=== PATIENT | male | born 1935 | race African-American/Black ===

== ENCOUNTER 2017-01-14 21:53 | Inpatient (IN) | payer MEDICARE ==
--- NOTE | ~2017-01-14 | OP ---
Record Of Operation [facility] [address] [place]. [address] NAME: MITCHELL LAW : 34 STATUS : ADM IN PAT#: [id number] AGE: 82 ADM/REG DATE : 01/15/17 MR#: [id number] REPORT SERV DATE: 01/16/17 DICTATED BY: KARIME OROURKE DATE: 01/16/17 REPORT STATUS : Draft TRANSCRIBED BY: MODL DATE: 01/16/17 DATE OF PROCEDURE: 01/16/2017 PREOPERATIVE DIAGNOSES: 1. LeFort 1 facial fracture. 2. Comminuted nasal fracture. POSTOPERATIVE DIAGNOSES: 1. LeFort 1 facial fracture. 2. Comminuted nasal fracture. PROCEDURES PERFORMED: 1. ORIF of LeFort 1 fracture. 2. Close reduction of comminuted nasal fracture. ANESTHESIA: GETA with oral CY. SURGEON: Karime Orourke D.D.S. INDICATIONS: This is an 82-year-old male, who fell two days ago, and his anterior face and nose at a nursing facility. The patient was transferred to the [facility] for definitive treatment of his injuries. PROCEDURE PERFORMED: Informed consent was given, the patient was taken to the operating room at [facility] where he underwent a general anesthetic via oral tracheal intubation. The patient was prepped and draped in a normal sterile fashion for procedure of this type. Approximately 20 mL of 0.5% Marcaine with 1:200,000 epinephrine was injected into the anterior maxilla. At this time a cautery with a [place] tip Bovie was used to make an incision through the mucosa exposing his anterior nasal wall and his buttress of his maxilla on both sides. It is noted that he had comminution fractures and his entire maxilla moved with pressure to the anterior bony portion. At this time, the S plating system was opened and a four hole straight plate was used on the right side on the piriform rim area, and also a box lattice work type plate was used on the right, as well as the left, secured with multiple screws to fixate his maxilla. Copious irrigation was used in the flap. The mucosa was closed with 3-0 chromic gut suture in a running, interlocking fashion. Attention then was directed to the nasal bone, a speculum was used to visualize the septum and rule out any significant hematoma. The back end of a Ecal-Beau blade was used to carefully reduced the fracture of his comminuted nasal bone. The splint kit was opened. Mastisol was used and a malleable splint was placed over his nose and secured with paper tape. At the end of the surgery, the patient was thoroughly suctioned out orally, and an orogastric tube was placed and removed to suck out any stomach contents. Estimated blood loss was 20 mL. The patient tolerated the procedure well. He was extubated and taken recovery room stable condition. JS/JAMIL Record Of Operation [place] [id number] [facility] [place]. [address] NAME: MITCHELL LAW : 34 STATUS : ADM IN [facility]#: [id number] AGE: 82 ADM/REG DATE : 01/15/17 MR#: [id number] REPORT SERV DATE: 01/16/17 DICTATED BY: KARIME OROURKE DATE: 01/16/17 REPORT STATUS : Draft TRANSCRIBED BY: JAMIL DATE: 01/16/17 Karime Orourke D.D.S. / [id number] CC: Loraine Foley M.D.
--- NOTE | ~2017-01-14 | DS ---
Discharge Summary [facility] [address] [place]. [address] NAME: MITCHELL LAW : 34 STATUS : DIS IN PAT#: [id number] AGE: 82 ADM/REG DATE : 01/15/17 MR#: [id number] REPORT SERV DATE: 01/27/17 DICTATED BY: LISA NUR DATE: 01/26/17 REPORT STATUS : Draft TRANSCRIBED BY: JAMIL DATE: 01/26/17 Data Collection from hospitalization DISCHARGE DIAGNOSES: 1. LeFort 1 facial fracture, status post open reduction and internal fixation. 2. Comminuted nasal fracture, status post closed reduction of comminuted nasal fracture. 3. Swelling of lip/drooling - probable combination of old cerebrovascular accident and swelling of the face. 4. Hypertension. 5. Dementia. 6. Prediabetes. 7. History of prostate cancer. 8. Cerebrovascular disease. 9. Chronic obstructive pulmonary disease. 10.Stage III chronic kidney disease. 11.Iron deficiency. 12.Folic acid deficiency. 13.Large hiatal hernia. 14.Gastroesophageal reflux disease. 15.Hyperlipidemia. 16.Glaucoma. 17.Osteoporosis. 18.Allergic rhinitis. 19.Former smoker. CONSULTATIONS: Osman Ribera D.D.S. PROCEDURES PERFORMED: 1. Open reduction and internal fixation of the LeFort 1 fracture, closed reduction of comminuted nasal fracture on 01/16/2017. 2. CT scan of the brain without contrast and CT scan of the face without contrast on 01/14/2017. MEDICATIONS: Tylenol 1000 mg twice a day as instructed, Ventolin two puffs via inhaler four times a day as needed, Augmentin 875 mg twice a day, aspirin 81 mg daily, brimonidine one drop at bedtime, Tums 500 mg twice a day, Zyrtec 10 mg daily, Colace 100 mg twice a day, ferrous sulfate 325 mg daily, Proscar 5 mg at bedtime, Advair Diskus one puff via inhaler twice a day, folic acid 1 mg daily, Cozaar 25 mg daily, Namenda 5 mg twice a day, Percocet 5/325 one tablet with every eight hours as needed, Protonix 40 mg twice a day, MiraLAX powder 17 g daily, Zocor 20 mg at bedtime, Spiriva one capsule via inhaler daily, and Travatan one drop daily as instructed. CONDITION AT DISCHARGE: Stable. DISPOSITION: The patient was discharged home on a soft diet with activities as instructed. He would follow up with Dr. Osman Ribera on 01/19/2017. HOSPITAL COURSE: This is an 82-year-old man who was at a local assisted living facility when Discharge Summary [address] [place]. [address] NAME: MITCHELL LAW : 34 STATUS : DIS IN PAT#: [id number] AGE: 82 ADM/REG DATE : 01/15/17 MR#: [id number] REPORT SERV DATE: 01/27/17 DICTATED BY: LISA NUR DATE: 01/26/17 REPORT STATUS : Draft TRANSCRIBED BY: JAMIL DATE: 01/26/17 he had a fall while unpacking his clothes. He said he turned around to pick something up and his foot got stuck in the rail and he went straight down face forward and was unable to hold onto something to break his fall. Immediately, his nose started bleeding and he experienced severe pain in his cheek. He was admitted to the hospital at this time for further evaluation and treatment. Upon admission, his white count was 11.3 with an increase of neutrophils. Creatinine level was 1.01. CT scan of the face and brain showed no intracranial hemorrhage. He had moderate advanced diffuse cerebral evolutional changes and advanced deep white matter chronic changes with microvascular ischemic change. His chronic focal encephalomalacia, inferior left cerebellar hemisphere. He was acutely and mildly depressed. He has comminuted fracture of the anterior nasal bone and frontal process, left maxilla, anterior and posterior wall of the maxillary sinuses with hematoma with air hemorrhage levels within the maxillary sinuses. It was felt that he would need to undergo surgical intervention. We did not see any major contraindications for surgery. He has sibm-tn-khogqnkg dementia. IV fluids were being provided. Rocephin was continued. He had a low-grade temperature. There was no indication of infection. Proscar was continued for his history of prostate cancer. He was going to receive his bronchodilators by nebulization and his steroids. He would be started on incentive spirometry and we would use some oxygen if his oxygen level drop less than 92%. Losartan would be continued. Hydralazine would be given as needed. Antiglaucoma drops would be continued as well as his Namenda. He does have mild anemia with a history of iron deficiency anemia. We would continue his iron and folic acid. Stat EKG showed sinus rhythm at 65 beats per minute with nonspecific T-wave abnormalities. No acute ST depressions or elevations were present. He was seen by Dr. Osman Ribera. The patient was found to have comminuted fractures to his nasal bone along with complex fracture pattern to the central face that include fractures of the nasal bone, frontal process, bilateral maxilla. He reviewed the CT scan with the radiologist. It was felt that the patient could be diagnosed with a nondisplaced LeFort 1 fracture along with nasal fracture. He did not show any fracture of the cervical spine. He did, however, have some hematoma in the maxillary sinuses consistent with this type of fracture pattern. Treatment options were discussed and it was elected to proceed with surgical intervention. The following day, he was taken to the operating room where he underwent the above-mentioned procedure by Dr. Osman Ribera. He tolerated this well, and there were no complications. His surgery went well. He had no significant pain. He was tolerating liquids. IV fluids were stopped. He did have an abnormal urinalysis and followup urine culture was obtained. Rocephin was continued. On postop day #1, he was awake and alert. He had no airway problems. He had no acute bleeding. He did have some facial swelling consistent with surgery. Nasal splint was intact. Augmentin was going to be given postoperatively. Discharge planning was performed. He said he was sore all over. His T-max was 100. SCDs were in place. Blood cultures were obtained as well as a chest x-ray. On 01/18/2017, his blood cultures were negative. Urine culture was unremarkable. He had left numbness. He was able to open his mouth to eat. He did complain of drooling. Discharge instructions were given. Due to his improved and stable condition, he was discharged home with the above-stated instructions. Information collected by: Berta Stewart Discharge Summary [address] [place]. [address] NAME: MITCHELL LAW : 34 STATUS : DIS IN [facility]#: [id number] AGE: 82 ADM/REG DATE : 01/15/17 MR#: [id number] REPORT SERV DATE: 01/27/17 DICTATED BY: LISA NUR DATE: 01/26/17 REPORT STATUS : Draft TRANSCRIBED BY: JAMIL DATE: 01/26/17 I submit the above information as my discharge summary. TG/JAMIL Lisa Nur M.D. / [id number] CC: Porfirio Rivas D.D.SArlene
--- NOTE | ~2017-01-14 | CN ---
Consultation Report [facility] [address] [facility] [place]. [address] NAME: MITCHELL LAW : 34 STATUS : ADM Sher PAT#: [id number] AGE: 82 ADM/REG DATE : 01/14/17 MR#: [id number] REPORT SERV DATE: 01/15/17 DICTATED BY: KARIME OROURKE DATE: 01/15/17 REPORT STATUS : Draft TRANSCRIBED BY: MODJuliana DATE: 01/15/17 DATE OF CONSULTATION: CHIEF COMPLAINT: "I fell and hit my face." HISTORY OF PRESENT ILLNESS: This is an 82-year-old male status post fall yesterday with a poor history. The patient does have a history of dementia. PAST MEDICAL HISTORY: Significant for dementia, Valdes's esophagitis, hiatal hernia, osteoporosis. ALLERGIES: HE HAS NO KNOWN DRUG ALLERGIES. PHYSICAL EXAMINATION: He is 5 feet 10 inches, weight is 146 pounds. VITAL SIGNS: Upon admission to [facility], blood pressure 196/92, temperature 99, pulse 82, oxygen saturation 98%. HEAD, EYES, EARS, NOSE, THROAT: The patient is normocephalic. He has moderate mid facial edema. His pupils are equal, round, reactive to light. His extraocular muscles are intact. He has no significant bleeding from his nares, however, he has some displacement of the nasal bone to the patient's left side with moderate edema to the mid face. The patient is very sensitive intraorally in his maxilla. The patient does not have a malocclusion. He does wear complete dentures and is edentulous in both arches. The patient does not have any significant ecchymosis in his sclerae. The patient does complain of eibcyxla-cy-stzvmm facial pain in his mid face. X-RAY: The radiologist performed a CT scan of the head and face that revealed comminuted fractures to his nasal bone along with complex fracture pattern to the central face that include fractures of the nasal bone, frontal process, bilateral maxilla. After reviewing the CT scan with radiologist, the patient could be diagnosed with a nondisplaced LeFort 1 fracture along with a nasal fracture. The patient does not show any fracture of his cervical spine. He does, however, have some hematoma in the maxillary sinuses consistent with this type of fracture pattern. PLAN OF CARE: To continue appropriate home meds, to deliver intravenous fluids along with antibiotics. The patient will undergo open reduction and internal fixation of facial fractures tomorrow morning. The patient would need to continue on a soft mechanical/full liquid diet for several weeks postoperatively. I appreciate the hospitalist's perioperative management of this patient. ALLA/JAMIL Consultation Report [address] [place]. [address] NAME: MITCHELL LAW : 34 STATUS : ADM Sher PAT#: [id number] AGE: 82 ADM/REG DATE : 01/14/17 MR#: [id number] REPORT SERV DATE: 01/15/17 DICTATED BY: KARIME OROURKE DATE: 01/15/17 REPORT STATUS : Draft TRANSCRIBED BY: JAMIL DATE: 01/15/17 Karime Orourke D.D.S. / [id number] CC: Loraine Foley M.D.
--- NOTE | ~2017-01-14 | HP ---
History And Physical [place] [address] [place]. [address] NAME: MITCHELL LAW : 34 STATUS : ADM IN [facility]#: [id number] AGE: 82 ADM/REG DATE : 01/15/17 MR#: [id number] REPORT SERV DATE: 01/15/17 DICTATED BY: LISA NUR DATE: 01/15/17 REPORT STATUS : Draft TRANSCRIBED BY: MODJuliana DATE: 01/15/17 DATE OF ADMISSION: 01/14/2017 CHIEF COMPLAINT: Fall with facial pain and nose bleed. HISTORY OF PRESENT ILLNESS: Mr. Lloyd is an 82-year-old male, who was at respite at a local assisted living when he had a fall while unpacking his clothes. He stated he turned around to pick something up, his foot got stuck in the rail and he went straight down face forward and was unable to hold onto something to break his fall. Immediately, his nose started bleeding and he experienced severe pain in his cheek. ALLERGIES: LISINOPRIL CAUSES COUGH. CURRENT MEDICATIONS: Include aspirin 81 mg daily, Proscar 5 mg daily, Namenda 5 mg twice daily, Cozaar 25 mg daily, folic acid 1 mg daily, Zocor 20 mg at bedtime, Colace 100 mg twice daily, Protonix 40 mg b.i.d., MiraLAX 17 g daily, Advair 250/50 one puff twice daily, Spiriva once daily, Zyrtec 10 mg daily, brimonidine 0.2 mg in both eyes at bedtime, Xalatan 0.005% in both eyes once daily. 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 SOCIAL HISTORY: He lives with his daughter. He is an ex-smoker, quit greater than 20 years ago, but was a heavy smoker. FAMILY HISTORY: Noncontributory. REVIEW OF SYSTEMS: Even before this incident, he had occasional headaches. No recent chest pain. No shortness of breath at rest or with mild exertion. No recent surgeries. No recent hospitalizations. His daughter is at his bedside. PHYSICAL EXAMINATION: VITAL SIGNS: Temp 99, blood pressure 136/66, pulse 76, respiratory rate 16, O2 saturation 97%. Weight 150 pounds. GENERAL: He is a pleasant, elderly man in no apparent distress. HEENT: He has muddy conjunctivae, no conjunctival injection. He does have nasal swelling with tenderness. He has a healing laceration on the right side of his lower lip. His upper lip is swollen and he has tenderness of both cheeks, but especially at the left cheek. He has dentures in place upper and lower that fit well and are not broken. NECK: Supple. No tenderness. CARDIAC: Regular rate and rhythm with a 2/6 systolic murmur. History And Physical [address] [address] NAME: MITCHELL LAW : 34 STATUS : ADM IN [facility]#: [id number] AGE: 82 ADM/REG DATE : 01/15/17 MR#: [id number] REPORT SERV DATE: 01/15/17 DICTATED BY: LISA NUR DATE: 01/15/17 REPORT STATUS : Draft TRANSCRIBED BY: JAMIL DATE: 01/15/17 LUNGS: Clear. BACK: He has a scar on his left flank. ABDOMEN: Positive bowel sounds. Soft, nondistended, nontender. : No Haile in place. Has on diapers. EXTREMITIES: No edema. NEURO: He is alert, fluent, 4+/5 strength in upper extremities, 5-/5 strength in bilateral lower extremities. He follows directions. No tremor. SKIN: No pressure ulcers. No rashes. He does have multiple small seborrheic keratosis on his back. LABORATORY EVALUATION: White count was 11.3 with an increase of neutrophils and hemoglobin of 11.4, hematocrit of 34.2, platelets 240. PT 13.6, INR 1.1. Chemistries show sodium 143, potassium 3.7, chloride 107, bicarb 26, BUN 3, creatinine 1.01. Glucose 128. CAT scan of the face and brain showed no intracranial hemorrhage. He has moderate advanced diffuse cerebral evolutional changes and advanced deep white matter chronic changes with microvascular ischemic change. His chronic focal encephalomalacia, inferior left cerebellar hemisphere. He is acutely and mildly depressed, comminuted fracture of his anterior nasal bone, frontal process, left maxilla, interior and posterior wall of the maxillary sinuses with hematoma with air-hemorrhage levels within the maxillary sinuses. IMPRESSION AND PLAN: 1. Fall with trauma to face leading to multiple fractures of the nose and maxillary sinus. The patient is presently having only mild discomfort. At this time, I do not see any major contraindications for surgery tomorrow. The patient does have qxgy-ob-kccgiwdb dementia and is at risk for delirium/increased confusion secondary to anesthesia. His daughter will spend as much time with him as possible and I think that will be helpful in keeping him oriented. We will continue low-dose morphine for pain. We will need to check a stat EKG, a chest x-ray, UA culture and sensitivity. He is on low amounts of IV fluids, but is drinking pretty well and we will continue Rocephin. His diet is a full liquid and even after surgery, there will only be mechanical soft. 2. He does have a mild leukocytosis which I suspect is reactive to his recent trauma. He does also have a low-grade temp, but still I do not see an indication of infection. Daughter says he has not been coughing, no nausea, no vomiting, no diarrhea, no burning on urination. We will go ahead and check a UA since he does have prostate cancer and probably has some obstruction secondary to it. We will also check a portable chest x- ray, and the nurse will call me with the results of the chest x-ray. 3. For his prostate cancer, we will continue Proscar. 4. Gastroesophageal reflux disease with hiatal hernia. We will continue Protonix. 5. Chronic obstructive pulmonary disease with a history of lobectomy. We will change his regimen a little, so that he is receiving his bronchodilators by nebulization and his steroids. We will start some incentive spirometry and we will use some oxygen if his oxygen drops less than 92%. 6. Hypertension. Blood pressure is controlled. Continue losartan and he has hydralazine in case his systolic blood pressure is greater than 180, and we will check a BMP in the morning. 7. Glaucoma. Continue his antiglaucoma drops. 8. Dementia. Continue Namenda. History And Physical [place] [id number] [facility] [place]. [address] NAME: MITCHELL LAW : 34 STATUS : ADM IN PAT#: [id number] AGE: 82 ADM/REG DATE : 01/15/17 MR#: [id number] REPORT SERV DATE: 01/15/17 DICTATED BY: LISA NUR DATE: 01/15/17 REPORT STATUS : Draft TRANSCRIBED BY: MODJuliana DATE: 01/15/17 9. He does have a low-grade temp as mentioned before and we will check his UA and chest x- ray, but again that could also be related to his trauma and the blood that is present in his sinuses. 10.He has a mild anemia with history of iron deficiency anemia. We will continue his iron and folic acid. 11.The patient is a do not resuscitate, limited additional interventions. Again, I have explained some risks to the daughter, but they are willing to proceed with the surgery. His stat EKG shows sinus rhythm at 65 beats per minute with nonspecific T-wave abnormalities. No acute ST depressions or elevations are present. STEPHANIE/JAMIL Lisa Nur M.D. / [id number] CC: Loraine Foley M.D.
[~2017-01-14 21:53] MED LIST: ACET500CAP PO; ASAB PO; BRIMONIDINE0.2 % OPH; CLARIT10 PO; COMBIGAN0.2 MG/0.5 OP; DSS50 PO; FLOMAX4 PO; MAGOX4 PO; MIRALAXPKT PO; MYLUD PO; OS500+D PO; PROSCAR5 PO; PROTONIX PO; RANITIDINE300 MG PO; SALINE NASAL SPRAY; SENTAB PO; TRAVATAN OPH; TRAVATAN Z0.004 % OPH; TUSSINDMSF PO; VITAMIN D1000 UNI1 PO; ZANTAC300 MG PO; ZOCOR40 PO; ZYRTEC ALLGY10 MG PO
[2017-01-14 23:00] LABS: BASOPHILS 0.1 %; BASOPHILS ABSOLUTE 0.01 10/3/uL (0.0-0.16); EOSINOPHILS 0.2 %; EOSINOPHILS ABSOLUTE 0.02 10/3/uL (0.0-0.53); HEMATOCRIT 34.2 % (40.0-51.0); HEMOGLOBIN 11.4 g/dL (13.6-17.8); IMMATURE GRANULOCYTES 0.2 %; IMMATURE GRANULOCYTES ABSOLUTE 0.02 10/3/uL (0.0-0.11); LYMPHOCYTES 12.2 %; LYMPHOCYTES ABSOLUTE 1.38 10/3/uL (0.67-4.30); MANUAL DIFF NO %; MEAN CORPUS HGB CONC 33.3 g/dL (32.0-36.0); MEAN CORPUSCULAR HEMOGLOB 29.6 pg (26.0-34.0); MEAN CORPUSCULAR VOLUME 88.8 fL (80-100); MEAN PLATELET VOLUME 10.1 fL (9.2-13.0); MONOCYTES 4.3 %; MONOCYTES ABSOLUTE 0.48 10/3/uL (0.21-1.20); NEUTROPHILS ABSOLUTE 9.38 10/3/uL (2.02-8.40); PLATELET COUNT 240 10/3/uL (150-400); RBC DISTRIBUTION WIDTH 14.5 % (12.0-16.0); RED CELL COUNT 3.85 10/6/uL (4.7-6.1); WHITE BLOOD CELLS 11.3 10/3/uL (4.5-10.5)
[2017-01-14 23:16] LABS: A/G RATIO 1.1 (0.7-1.9); ALBUMIN 3.5 G/DL (3.5-5.0); ALKALINE PHOSPHATASE 93 U/L (45-117); BUN (BLOOD UREA NITROGEN) 13 MG/DL (6-23); CALCIUM, SERUM 8.7 MG/DL (8.5-10.4); CHLORIDE, SERUM 107 MMOL/L (96-112); CO2 (CARBON DIOXIDE) 26 MMOL/L (24-34); CREATININE 1.01 MG/DL (0.70-1.30); GFR AFRICAN AMERICAN 79 ML/MIN (>=60); GFR NON AFRICAN AMERICAN 68 ML/MIN (>=60); GLOBULIN 3.3 G/DL (2.5-4.1); GLUCOSE, SERUM 128 MG/DL (60-99); POTASSIUM, SERUM 3.7 MMOL/L (3.5-5.3); SGOT(AST) 16 U/L (5-40); SGPT(ALT) 18 U/L (5-65); SODIUM, SERUM 143 MMOL/L (135-148); TOTAL BILIRUBIN 0.2 MG/DL (0-1.2); TOTAL PROTEIN 6.8 G/DL (6.0-8.5)
[2017-01-14 23:28] LABS: INTERNATIONAL NORMAL RATI 1.1 UNITS (-); PROTIME (NOT ORD) 13.6 SEC (12.0-14.5)
[2017-01-15] MEDS ORDERED: *UNABLE3 (01:27)
[2017-01-15] MEDS ORDERED: NAMENDA5 PO (01:57)
[2017-01-15] MEDS ORDERED: ZOCOR20 PO (01:57)
[2017-01-15] MEDS ORDERED: ZYRTEC ALLGY10 MG PO (01:57)
[2017-01-15] MEDS ORDERED: VENTOLIN HFA INH (01:58)
[2017-01-15] MEDS ORDERED: FERROUS SULF325 M1 PO (01:58)
[2017-01-15] MEDS ORDERED: PROTONIX PO (01:58)
[2017-01-15] MEDS ORDERED: DSS PO (01:58)
[2017-01-15] MEDS ORDERED: FOLIC PO (01:59)
[2017-01-15] MEDS ORDERED: TUMSROLL PO (01:59)
[2017-01-15] MEDS ORDERED: MIRALAX POWDER1 PKT PO (02:00)
[2017-01-15] MEDS ORDERED: TRAVATAN Z 0.004% OPH (02:01)
[2017-01-15] MEDS ORDERED: PROSCAR5 PO (02:01)
[2017-01-15] MEDS ORDERED: ASAB PO (02:01)
[2017-01-15] MEDS ORDERED: SPIRIVA INH (02:02)
[2017-01-15] MEDS ORDERED: ADVAIR250 INH (02:02)
[2017-01-15] MEDS ORDERED: BRIMONIDINE0.2 % OPH (02:02)
[2017-01-15] MEDS ORDERED: COZ25 PO (02:02)
[2017-01-15] MEDS ORDERED: ACET500CAP PO (02:03)
[2017-01-15 13:57] LABS: ACETAMINOPHEN LEVEL (TYLENOL) 8.6 MCG/ML (10.0-20.0)
[2017-01-15 13:59] LABS: ALCOHOL < 10 MG/DL (0); SALICYLATE < 1.7 MG/DL (-)
[2017-01-16 04:25] LABS: ASCORBIC ACID (UR NOT ORDER) NEG (NEG); BILIRUBIN, URINE NEGATIVE (NEG); KETONE, URINE NEGATIVE (NEG); LEUKOCYTE ESTERASE(NOT OR LARGE (NEG); WBC (NOT ORDERED) (RFLEX) > 182 (0-5)
[2017-01-16 06:36] LABS: BASOPHILS 0.1 %; BASOPHILS ABSOLUTE 0.01 10/3/uL (0.0-0.16); EOSINOPHILS 2.3 %; EOSINOPHILS ABSOLUTE 0.17 10/3/uL (0.0-0.53); HEMOGLOBIN 10.2 g/dL (13.6-17.8); IMMATURE GRANULOCYTES 0.1 %; IMMATURE GRANULOCYTES ABSOLUTE 0.01 10/3/uL (0.0-0.11); LYMPHOCYTES 28.6 %; LYMPHOCYTES ABSOLUTE 2.12 10/3/uL (0.67-4.30); MEAN CORPUS HGB CONC 32.9 g/dL (32.0-36.0); MEAN CORPUSCULAR HEMOGLOB 29.4 pg (26.0-34.0); MEAN CORPUSCULAR VOLUME 89.3 fL (80-100); MEAN PLATELET VOLUME 10.4 fL (9.2-13.0); MONOCYTES 8.2 %; MONOCYTES ABSOLUTE 0.61 10/3/uL (0.21-1.20); NEUTROPHILS 60.7 %; PLATELET COUNT 230 10/3/uL (150-400); RBC DISTRIBUTION WIDTH 14.7 % (12.0-16.0); RED CELL COUNT 3.47 10/6/uL (4.7-6.1); WHITE BLOOD CELLS 7.4 10/3/uL (4.5-10.5)
[2017-01-16 06:40] LABS: MANUAL DIFF NO %
[2017-01-16 06:52] LABS: BUN (BLOOD UREA NITROGEN) 9 MG/DL (6-23); CHLORIDE, SERUM 106 MMOL/L (96-112); CO2 (CARBON DIOXIDE) 25 MMOL/L (24-34); CREATININE 0.87 MG/DL (0.70-1.30); GFR AFRICAN AMERICAN 93 ML/MIN (>=60); GFR NON AFRICAN AMERICAN 80 ML/MIN (>=60); GLUCOSE, SERUM 99 MG/DL (60-99); POTASSIUM, SERUM 3.7 MMOL/L (3.5-5.3); SODIUM, SERUM 141 MMOL/L (135-148)
[2017-01-17 04:11] LABS: HEMATOCRIT 31.5 % (40.0-51.0); HEMOGLOBIN 10.5 g/dL (13.6-17.8)
[2017-01-17 04:30] LABS: BUN (BLOOD UREA NITROGEN) 12 MG/DL (6-23); CALCIUM, SERUM 8.3 MG/DL (8.5-10.4); CHLORIDE, SERUM 104 MMOL/L (96-112); CO2 (CARBON DIOXIDE) 27 MMOL/L (24-34); CREATININE 0.99 MG/DL (0.70-1.30); GFR AFRICAN AMERICAN 81 ML/MIN (>=60); GFR NON AFRICAN AMERICAN 70 ML/MIN (>=60); GLUCOSE, SERUM 109 MG/DL (60-99); POTASSIUM, SERUM 3.8 MMOL/L (3.5-5.3); SODIUM, SERUM 141 MMOL/L (135-148)
[2017-01-18] MEDS ORDERED: AUG875 PO (16:00)
[2017-01-18] MEDS ORDERED: PCET PO (16:01)
== END 2017-01-18 17:14 | disposition home or self-care (01) | DRG 131 ==
LOC: ER 21:53 → 4SO 23:59
PROVIDERS: Emergency Medicine; Family Medicine; Internal Medicine Geriatric Medicine; Oral & Maxillofacial Surgery
PROC: 0NSBXZZ Reposition Nasal Bone, External Approach (ICD-10-PCS; principal; 2017-01-16 07:45)
PROC: 0NSR04Z Reposition Maxilla with Internal Fixation Device, Open Approach (ICD-10-PCS; principal; 2017-01-16 07:45)
PROC: 0NSS04Z (ICD-10-PCS; principal; 2017-01-16 07:45)
DX: S02.411A LeFort I fracture, initial encounter for closed fracture (principal); N13.8 Other obstructive and reflux uropathy; C61 Malignant neoplasm of prostate; F01.50 Vascular dementia, unspecified severity, without behavioral disturbance, psychotic disturbance, mood disturbance, and anxiety; S02.2XXA Fracture of nasal bones, initial encounter for closed fracture; H40.9 Unspecified glaucoma; I12.9 Hypertensive chronic kidney disease with stage 1 through stage 4 chronic kidney disease, or unspecified chronic kidney disease; J44.9 Chronic obstructive pulmonary disease, unspecified; W18.39XA Other fall on same level, initial encounter; Y93.89 Activity, other specified; Y92.099 Unspecified place in other non-institutional residence as the place of occurrence of the external cause; K44.9 Diaphragmatic hernia without obstruction or gangrene; M81.0 Age-related osteoporosis without current pathological fracture; R73.03 Prediabetes; N18.3 Chronic kidney disease, stage 3 (moderate); D50.9 Iron deficiency anemia, unspecified; E78.5 Hyperlipidemia, unspecified; J30.9 Allergic rhinitis, unspecified; Z79.82 Long term (current) use of aspirin; Z90.2 Acquired absence of lung [part of]; Z86.11 Personal history of tuberculosis; Z86.73 Personal history of transient ischemic attack (TIA), and cerebral infarction without residual deficits; Z66 Do not resuscitate; S01.511A Laceration without foreign body of lip, initial encounter; Z88.8 Allergy status to other drugs, medicaments and biological substances
CPT/HCPCS: 70450; 70486; 71010; 80048; 80053; 80307; 81001; 85014; 85018; 85025; 85610; 87040; 87086; 93005; 94640; 96374; 99285; A9270-GY; C1713; J0330; J0360; J2405; J3010